=== PATIENT | female | born 1950 | race Caucasian/White ===

== ENCOUNTER 2020-05-10 16:54 | Emergency (ER) | payer MEDICARE, SELFPAY ==
--- NOTE | ~2020-05-10 | XR_ITS ---
EXAMINATION: [id number] EXAM DATE: 05/10/2020 17:59 INDICATION: Initial encounter following injury, with pain of the right ribs. TECHNIQUE: Frontal projection of the upper right ribs, frontal projection of the lower right ribs, ob lique projection of the right ribs, frontal chest x-ray(s) for interpretation. There is no prior anthony dy for comparison. FINDINGS: There are no displaced acute right rib fractures identified. There is no soft tissue abno rmality seen. Right midlung zone granuloma. No confluent consolidation, pneumothorax or pleural effus ion suspected. Mild to moderate lumbar levoscoliosis, mild lower thoracic dextroscoliosis. There is a ortic arteriosclerosis. 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 Consider educating patient that even if there is a radiographically occult nondisplaced rib fracture, there is no specific treatment other than to refrain from activity that prevents healing. IMPRESSION: No displaced right rib fractures. Reviewed, dictated and finalized at location A.
[2020-05-10 17:33] VITALS: BP 132/52; PULSE 62; RESP 16; TEMP 36.6; O2SAT 98
--- NOTE | 2020-05-10 17:56 | ED.GENADULT ---
HPI - General Adult General Chief complaint: Extremity Injury, Upper Stated complaint: Fall Time Seen by Provider: 05/10/20 17:57 Source: patient, family and RN notes reviewed Mode of arrival: ambulatory Limitations: no limitations History of Present Illness HPI narrative: 69 year old female accompanied with family member presents to express care with complaints of discomfort to her upper right chest and ribs from fall yesterday at her home. She has history of being fall risk and use to use a walker all the time but no longer is using any assistive devices, patient does have history of benign tremors and dementia.She states that she has had 3 falls in the past 3 months Patient states that she hit her right chest and rib region on the wall of bathroom and hit head on bathtub with no loss of consciousness. Patient has no bruising or redness to head or chest no broken skin areas noted, states that she has increase pain to her right chest and ribs when she coughs. MD complaint: fall Onset (ago): day(s) (1) Location: head and chest (right) Radiation: non-radiation Severity scale (1-10): 6 Quality: sharp Pain Consistency: intermittent Exacerbating factors: other (cough, deep breathing) Associated symptoms: denies other symptoms Treatments prior to arrival: NSAID Related Data Home Medications Medication Instructions Recorded Confirmed amlodipine 2.5 mg PO DAILY 05/10/20 05/10/20 atorvastatin 10 mg PO DAILY 05/10/20 05/10/20 donepezil 10 mg PO DAILY 05/10/20 05/10/20 fluoxetine 40 mg PO DAILY 05/10/20 05/10/20 furosemide 20 mg PO BID 05/10/20 05/10/20 lamotrigine 200 mg PO BID 05/10/20 05/10/20 losartan 25 mg PO DAILY 05/10/20 05/10/20 memantine 10 mg PO BID 05/10/20 05/10/20 pantoprazole 40 mg PO DAILY 05/10/20 05/10/20 primidone 50 mg PO BID 05/10/20 05/10/20 solifenacin 10 mg PO DAILY 05/10/20 05/10/20 trazodone 05/10/20 Allergies Allergy/AdvReac Type Severity Reaction Status Date / Time No Known Allergies Allergy Unverified 05/23/18 11:51 Review of Systems Review of Systems: Narrative: CONSTITUTIONAL: Denies fever, chills, or sweats. EYES: Denies visual changes, redness, or discharge. ENT: Denies rhinorrhea, congestion, sore throat, or otalgia. CARDIOVASCULAR: Positive for right chest pain and along ribs, denies any pressure or palpitations, or edema. RESPIRATORY: Denies cough or dyspnea.Increase pain to right chest if she coughs or takes deep breath.No redness, bruising or breaks in skin integrity noted to chest GASTROINTESTINAL: Denies abdominal pain, nausea, vomiting, or diarrhea. GENITOURINARY: Denies dysuria or hematuria. SKIN: Denies rash or itching. MUSCULOSKELETAL: Denies back pain, joint pain, or myalgia. NEUROLOGIC: Denies headache, numbness, or weakness. PSYCHIATRIC: Denies anxiety or depression. COUNT INCLUDES THE [facility] Past Medical History Medical History (Updated 05/16/20 @ 07:58 by Fadia Loya NP) Anxiety and depression Benign essential tremor Dementia Hypertension Urinary incontinence Surgical History Surgical History (Updated 05/14/20 @ 21:04 by Fadia Loya NP) H/O breast augmentation implants H/O tubal ligation History of bladder surgery stimulator History of knee joint replacement Bilateral Family History Family History (Updated 05/14/20 @ 21:00 by Fadia Loya NP) Mother Hypertension Grandparent Diabetes mellitus Social History Social History (Updated 05/14/20 @ 21:04 by Fadia Loya NP) Smoking status: Former smoker Alcohol intake: former Alcohol use details: recovered alcoholic 8 years Substance use: current Substance use type: marijuana Living arrangements: with family Gender identity (if verbalized by the patient): Female Comments At time of signature agree with nursing documentation of past medical, surgical, social and family history, There is no relevant family history pertinent to presenting problem. Exam Narrative: Exam Narrative: GEN
== END 2020-05-10 18:34 | disposition home or self-care (01) ==
PROVIDERS: Emergency Provider Registered Nurse; PCP Family Medicine
DX: S20.211A Contusion of right front wall of thorax, initial encounter (principal); W19.XXXA Unspecified fall, initial encounter; F41.9 Anxiety disorder, unspecified; F32.9 Major depressive disorder, single episode, unspecified; I10 Essential (primary) hypertension; F03.90 Unspecified dementia, unspecified severity, without behavioral disturbance, psychotic disturbance, mood disturbance, and anxiety; Z87.891 Personal history of nicotine dependence
CPT/HCPCS: 71101; 99213; G0463